=== PATIENT | female | born 1985 | race Caucasian/White ===

== ENCOUNTER 2019-10-24 12:43 | Emergency (ER) | payer BC ==
[2019-10-24 13:05] VITALS: BP 123/79; PULSE 85; TEMP 98.1; BMI 30.4
--- NOTE | 2019-10-24 13:43 | PDOC ---
History of Present Illness - General Chief Complaint: Pain Stated Complaint: PAIN TO LEFT LOWER RIB AREA Time Seen by Provider: 10/24/19 13:14 History Source: Patient Exam Limitations: No Limitations - History of Present Illness Initial Comments: 10/24/19 13:45 33 yo F with no past medical history presenting with LUQ pain. Per the patient, she has had the pain 1.5 months ago and evaluated at [facility]. The patient presents with approximately 1 week of pain with worsening yesterday. The pain resolved yesterday, but came back today while at rest. The pain is described as dull, non radiating, without worsening or relieving factors. She states it is less severe than when she had it in September. Denies the following: fevers, nausea, vomiting, SOB, pleuritic pain with inspiration, chest pain, recent travels, use of hormones, recent surgeries/immobilizations, hx of DVT/PE , dysuria, hematuria, diarrhea, vaginal bleeding/discharge, lower abdominal pain , hematochezia, and back pain. Endorses constipation with last BM today. Endorses relatively new diet that is restrictive of carbs and has had bloating. Allergies: NKDA Past History - Past Medical History Allergies/Adverse Reactions: Allergies Allergy/AdvReac Type Severity Reaction Status Date / Time No Known Allergies Allergy Unverified 10/24/19 12:46 Home Medications: Ambulatory Orders Pantoprazole Sodium [Protonix -] 40 mg PO DAILY #30 tablet.ec 10/24/19 COPD: No Other medical history: DENIES - Psycho Social/Smoking Cessation Hx Smoking History: Never smoked Information on smoking cessation initiated: No Hx Alcohol Use: Yes (SOCIAL) Drug/Substance Use Hx: No Review of Systems - Review of Systems Able to Perform ROS?: Yes Is the patient limited Arabic proficient: No Constitutional: No: Chills, Diaphoresis, Fever, Weakness HEENTM: No: Eye Pain, Ear Pain, Nose Pain, Throat Pain, Mouth Pain Respiratory: No: Cough, Shortness of Breath, Hemoptysis Cardiac (ROS): No: Chest Pain, Lightheadedness, Palpitations ABD/GI: Yes: Constipated. No: Diarrhea, Nausea, Rectal Bleeding, Vomiting, Tarry Stools : No: Burning, Dysuria, Hematuria Musculoskeletal: No: Back Pain, Joint Pain, Neck Pain Integumentary: No: Bruising, Erythema, Pruritus Neurological: No: Headache, Numbness, Tingling, Tremors Psychiatric: No: Change in Appetite Endocrine: No: Unexplained Weight Loss Hematologic/Lymphatic: No: Anemia *Physical Exam - Vital Signs Last Vital Signs Temp Pulse Resp BP Pulse Ox 98.1 F 85 16 123/79 100 10/24/19 12:45 10/24/19 12:45 10/24/19 12:45 10/24/19 12:45 10/24/19 12:45 - Physical Exam General Appearance: Yes: Nourished, Appropriately Dressed. No: Apparent Distress, Intoxicated, Obese HEENT: positive: EOMI, CHIO, Normal Voice, Symmetrical, Pharynx Normal, Hearing Grossly Normal. negative: Pale Conjunctivae, Scleral Icterus (R), Scleral Icterus (L), Muffled/Hoarse voice, Pharyngeal Erythema, Tonsillar Exudate, Tonsillar Erythema, Nasal Congestion, Excessive drooling Neck: positive: Trachea midline, Supple. negative: Tender Respiratory/Chest: positive: Lungs Clear, Normal Breath Sounds. negative: Chest Tender, Respiratory Distress, Accessory Muscle Use Cardiovascular: positive: Regular Rhythm, Regular Rate, S1, S2. negative: Systolic Murmur Gastrointestinal/Abdominal: positive: Normal Bowel Sounds, Tender (LUQ), Flat, Soft. negative: Distended, Guarding, Rebound Lymphatic: negative: Adenopathy Musculoskeletal: positive: Normal Inspection. negative: CVA Tenderness, Vertebral Tenderness Extremity: positive: Normal Capillary Refill, Normal Inspection, Normal Range of Motion. negative: Tender Integumentary: positive: Normal Color, Dry, Warm Neurologic: positive: Fully Oriented, Alert, Normal Mood/Affect ED Treatment Course - LABORATORY CBC & Chemistry Diagram: 10/24/19 14:15 10/24/19 14:15 Medical Decision Making - Medical Decision Making 33 yo F with no past medical history presenting with LUQ pain. Initial vitals: Initial Vital Signs Temp Pulse Resp BP Pulse Ox 98.1 F 85 16 123/79 100 10/24/19 12:45 10/24/19 12:45 10/24/19 12:45 10/24/19 12:45 10/24/19 12:45 Work up: ddx: patient presents with LUQ pain with mild tenderness on examination. ddx: UTI vs nephrolithiasis vs pyelonephritis vs pancreatitis vs gastritis vs GERD vs colitis vs constipation vs msk pain Laboratory Tests 10/24/19 10/24/19 10/24/19 13:59 13:59 14:15 WBC 11.8 H RBC 4.24 Hgb 13.9 Hct 41.8 MCV 98.6 H MCH 32.9 MCHC 33.4 RDW 11.9 Plt Count 274 MPV 8.1 Absolute Neuts (auto) 9.2 Neutrophils % 78.2 Lymphocytes % 15.8 Monocytes % 3.7 L Eosinophils % 1.3 Basophils % 1.0 Sodium Potassium Chloride Carbon Dioxide Anion Gap BUN Creatinine Est GFR (CKD-EPI)AfAm Est GFR (CKD-EPI)NonAf Random Glucose Calcium Total Bilirubin AST ALT Alkaline Phosphatase Total Protein Albumin Lipase Urine Color Yellow Urine Appearance Slightly Urine pH 5.0 Urine Protein Negative Urine Glucose (UA) Negative Urine Ketones 1+ H Urine Blood Negative Urine Nitrite Negative Urine Bilirubin Negative Urine Urobilinogen 0.2 Ur Leukocyte Esterase Negative Urine HCG, Qual Negative 10/24/19 10/24/19 14:15 14:15 WBC RBC Hgb Hct MCV MCH MCHC RDW Plt Count MPV Absolute Neuts (auto) Neutrophils % Lymphocytes % Monocytes % Eosinophils % Basophils % Sodium 137 Potassium 4.1 Chloride 107 Carbon Dioxide 21 Anion Gap 9 BUN 12.0 Creatinine 0.7 Est GFR (CKD-EPI)AfAm 133.81 Est GFR (CKD-EPI)NonAf 115.45 Random Glucose 80 Calcium 9.1 Total Bilirubin 0.7 AST 22 ALT 14 Alkaline Phosphatase 53 Total Protein 6.8 Albumin 4.1 Lipase 120 Urine Color Urine Appearance Urine pH Urine Protein Urine Glucose (UA) Urine Ketones Urine Blood Urine Nitrite Urine Bilirubin Urine Urobilinogen Ur Leukocyte Esterase Urine HCG, Qual patient was treated with tylenol, zofran, pepcid, maalox. labs within normal limits The patient was reassessed. pain has nearly resolved per the patient and she has no tenderness on examination of the abdomen Patient likely having gastritis She was given a prescription for protonix and a referral for GI She was given strict return precautions Discharge - Discharge Information Problems reviewed: Yes Clinical Impression/Diagnosis: Gastritis Condition: Stable Disposition: HOME - Admission No - Additional Discharge Information Prescriptions: Pantoprazole Sodium [Protonix -] 40 mg PO DAILY #30 tablet.ec - Follow up/Referral Referrals: Smith Monique MD [Staff Physician] - - Patient Discharge Instructions Patient Printed Discharge Instructions: [place] Diet, DI for Gastritis Additional Instructions: You were seen in the emergency department for the evaluation of your pain. Your labs were within normal limits and you improved with medications targeted for stomach pain. Please follow up with the junior linux administrator within 1 week after discharge for follow up care and management. Please return to the emergency department if you have worsening symptoms or new concerning symptoms. Thank you. - Post Discharge Activity
[2019-10-24] MEDS ORDERED: FAMOTIDINE 20 MG/50 ML IVPB 20 MG/50 ML MG IVPB ONE ×2 (13:44→14:00)
[2019-10-24] MEDS ORDERED: ONDANSETRON 4 MG/2 ML VIAL IVPUSH ONE (13:44)
[2019-10-24] MEDS ORDERED: ACETAMINOPHEN 1000 MG/100 ML VIAL (NON FORMULARY) IVPB ONE (13:44)
[2019-10-24] MEDS ORDERED: MAG HYDROX/AL HYDROX/SIMETH 30 ML UNIT-DOSE CUP PO ONE (13:44)
[2019-10-24] MEDS ORDERED: ACETAMINOPHEN INJECTION 100 ML IVPB ONE (14:00)
[2019-10-24] MEDS ORDERED: ONDANSETRON 4 MG/2 ML VIAL ONE (14:01)
[2019-10-24] MEDS ORDERED: MAG HYDROX/AL HYDROX/SIMETH 30 ML UNIT-DOSE CUP ONE (14:01)
[2019-10-24 14:38] LABS: HEMOGLOBIN 13.9 GM/dl (10.7-15.3); RDW 11.9 % (11.6-15.6)
[2019-10-24 14:42] LABS: EOS % 1.3 % (0-4.5); HEMATOCRIT 41.8 % (32.4-45.2); LYMPH % 15.8 % (8-40); MCH 32.9 pg (25.7-33.7); MCHC 33.4 g/dl (32.0-36.0); MEAN CELL VOLUME 98.6 fl (80-96); MEAN PLT VOLUME 8.1 fl (7.5-11.1); MONO % 3.7 % (3.8-10.2); NEUT % 78.2 % (42.8-82.8); PLATELET COUNT 274 K/MM3 (134-434); RBC 4.24 M/mm3 (3.60-5.2); WHITE BLOOD COUNT 11.8 K/mm3 (4.0-10.8)
[2019-10-24 14:45] LABS: ALBUMIN 4.1 g/dl (3.4-5.0); BILIRUBIN,TOTAL 0.7 mg/dl (0.2-1); CALCIUM 9.1 mg/dl (8.5-10); CREATININE 0.7 mg/dl (0.55-1.3); POTASSIUM 4.1 mmol/L (3.5-5.1); TOT PROT 6.8 g/dl (6.4-8.2)
--- NOTE | 2019-10-24 18:01 | PDOC ---
Attending Attestation - Resident Resident Name: CooperKane - ED Attending Attestation I have performed the following: I have examined & evaluated the patient, The case was reviewed & discussed with the resident, I agree w/resident's findings & plan, Exceptions are as noted - HPI HPI: 10/24/19 17:59 Left upper quadrant pain, intermittent, present for several weeks, relieved by antacids. No nausea vomiting or diarrhea. No chest pain, shortness of breath, fever, cough, or pleuritic component of the pain. - Physicial Exam PE: 10/24/19 18:00 Physical exam: Afebrile, vital signs normal No pallor or icterus Chest clear. No chest wall or rib cage deformity or tenderness CV normal Abdomen nondistended, bowel sounds normal, soft without mass organomegaly. Mild tenderness in the left upper quadrant to deep palpation, no guarding or rebound. - Medical Decision Making 10/24/19 18:00 Assessment: Chronic dyspepsia, possible early gastritis/PUD Plan: Patient responded to antacids with complete resolution of her pain and abdominal tenderness. Continue Protonix. GI follow-up. Return to ER if pain worsens or other symptoms develop. Fully ambulatory in no pain at discharge to follow-up as directed
== END 2019-10-24 16:29 | disposition home or self-care (01) ==
LOC: FER 12:43
PROC: 3E033NZ Introduction of Analgesics, Hypnotics, Sedatives into Peripheral Vein, Percutaneous Approach (ICD-10-PCS; principal; 2019-10-24)
PROC: 3E033GC Introduction of Other Therapeutic Substance into Peripheral Vein, Percutaneous Approach (ICD-10-PCS; 2019-10-24)
DX: K29.70 Gastritis, unspecified, without bleeding (principal)
CPT/HCPCS: 36415; 80053; 81003; 83690; 84703; 85025; 99284-25; J0131

== ENCOUNTER 2021-03-22 07:33 | Emergency (ER) | payer BC ==
[2021-03-22 07:51] VITALS: TEMP 99.6; BMI 31.9
[2021-03-22] MEDS ORDERED: SODIUM CHLORIDE 0.9% 500 ML INFUS.BAG IV ONE (08:03)
[2021-03-22] MEDS ORDERED: ONDANSETRON 4 MG/2 ML VIAL IVPUSH ONE (08:03)
[2021-03-22] MEDS ORDERED: FAMOTIDINE 20 MG/50 ML IVPB 20 MG/50 ML MG IVPB ONE ×2 (08:03→08:36)
[2021-03-22] MEDS ORDERED: ACETAMINOPHEN 1000 MG/100 ML VIAL (NON FORMULARY) IVPB ONE (08:19)
[2021-03-22] MEDS ORDERED: ONDANSETRON 4 MG/2 ML VIAL ONE (08:21)
[2021-03-22] MEDS ORDERED: ACETAMINOPHEN INJECTION 100 ML IVPB ONE (08:36)
[2021-03-22 08:48] LABS: BASO % 0.3 % (0-2.0); EOS % 0.9 % (0-4.5); HEMATOCRIT 42.5 % (32.4-45.2); HEMOGLOBIN 14.8 GM/dL (10.7-15.3); LYMPH % 11.9 % (8-40); MCH 33.8 pg (25.7-33.7); MCHC 34.8 g/dl (32.0-36.0); MEAN CELL VOLUME 97.3 fl (80-96); MEAN PLT VOLUME 8.3 fl (7.5-11.1); MONO % 6.3 % (3.8-10.2); NEUT % 80.6 % (42.8-82.8); PLATELET COUNT 206 10^3/uL (134-434); RBC 4.37 M/mm3 (3.60-5.2); RDW 12.6 % (11.6-15.6); WHITE BLOOD COUNT 7.9 K/mm3 (4.0-10.0)
[2021-03-22 09:15] LABS: CALCIUM 8.9 mg/dL (8.5-10.1)
[2021-03-22 09:16] LABS: ALBUMIN 3.7 g/dl (3.4-5.0); BLOOD UREA NITROGEN 6.2 mg/dL (7-18)
[2021-03-22 09:19] LABS: CREATININE 0.8 mg/dL (0.55-1.3)
[2021-03-22 09:20] LABS: BILIRUBIN,TOTAL 0.4 mg/dL (0.2-1)
[2021-03-22 11:34] LABS: PH,URINE 6.5 (5.0-8.0); URINE APPEARANCE CLEAR; URINE BILIRUBIN NEGATIVE (NEGATIVE); URINE COLOR YELLOW; URINE GLUCOSE (UA) NEGATIVE (NEGATIVE); URINE KETONE NEGATIVE (NEGATIVE); URINE LEUK ESTERASE NEGATIVE (NEGATIVE); URINE NITRITE NEGATIVE (NEGATIVE); URINE PROTEIN NEGATIVE (NEGATIVE); URINE UROBILINOGEN 0.2 mg/dL (0.2-1.0)
[2021-03-22 11:50] VITALS: BP 110/63; PULSE 70
== END 2021-03-22 12:03 | disposition home or self-care (01) ==
LOC: JER 07:33
PROC: 3E033NZ Introduction of Analgesics, Hypnotics, Sedatives into Peripheral Vein, Percutaneous Approach (ICD-10-PCS; principal; 2021-03-22)
PROC: 3E033GC Introduction of Other Therapeutic Substance into Peripheral Vein, Percutaneous Approach (ICD-10-PCS; 2021-03-22)
PROC: 3E033GC Introduction of Other Therapeutic Substance into Peripheral Vein, Percutaneous Approach (ICD-10-PCS; 2021-03-22)
DX: K52.9 Noninfective gastroenteritis and colitis, unspecified (principal)
CPT/HCPCS: 36415; 74177-TC; 80053; 81003; 83690; 84703; 85025; 87086; 99285-25; J0131; Q9967